=== PATIENT | female | born 1980 | race Native Hawaiian/Other Pacific Islander ===

== ENCOUNTER 2016-07-13 11:17 | Emergency (ER) | payer OTHER ==
[~2016-07-13] VITALS: Ht 152.4 cm; Wt 63.5 kg
[2016-07-13 11:39] VITALS: BP 111/66; TEMP 98.6
[2016-07-13] MEDS ORDERED: FORTAMET500 MG PO (11:42)
[2016-07-13] MEDS ORDERED: GABA300C2 PO (11:43)
[2016-07-13] MEDS ORDERED: CELEXA10 MG PO (11:43)
[2016-07-13 12:18] LABS: PLATELET COUNT 223 K/uL (152-353)
[2016-07-13 12:39] LABS: POTASSIUM 4.3 mmol/L (3.6-5.2); SODIUM 133 mmol/L (136-145)
== END 2016-07-13 13:57 | disposition home or self-care (01) ==
LOC: ED 11:17
PROVIDERS: Family Medicine
DX: K59.00 Constipation, unspecified (principal); R10.9 Unspecified abdominal pain
CPT/HCPCS: 36415; 80053; 81000; 85027; 99283